=== PATIENT | male | born 1980 | race Caucasian/White ===

== ENCOUNTER 2022-12-19 00:40 | Emergency (ER) | payer OTHER ==
[~2022-12-19] VITALS: Ht 175.3 cm; Wt 74.8 kg
[2022-12-19 00:53] VITALS: PULSE 102; RESP 16; TEMP 98.3; O2SAT 98
[2022-12-19 04:28] VITALS: BP 117/65; PULSE 82; RESP 18; TEMP 98.2; O2SAT 99
== END 2022-12-19 04:28 | disposition left against medical advice (07) ==
LOC: MED 00:40
DX: F19.10 Other psychoactive substance abuse, uncomplicated (principal); V43.52XA Car driver injured in collision with other type car in traffic accident, initial encounter; Y93.89 Activity, other specified; Y92.410 Unspecified street and highway as the place of occurrence of the external cause; Y99.8 Other external cause status
CPT/HCPCS: 70450; 72125; 99284